=== PATIENT | female | born 1970 | race Caucasian/White ===

== ENCOUNTER → 2023-12-14 09:01 | Outpatient (REF) | payer OTHER, SELFPAY | LOC: HWRAD 09:01 | PROVIDERS: ATTENDING PHYSICIAN Student in an Organized Health Care Education/Training Program; FAMILY PHYSICIAN Family Medicine | DX: R10.31 Right lower quadrant pain (principal) | CPT/HCPCS: 74177; Q9967 ==

== ENCOUNTER → 2024-08-02 11:08 | Outpatient (REF) | payer OTHER, SELFPAY | LOC: HWRAD 11:08 | PROVIDERS: ATTENDING PHYSICIAN Family Medicine | DX: R51.9 Headache, unspecified (principal); H93.12 Tinnitus, left ear | CPT/HCPCS: 70450; 70480 ==